=== PATIENT | female | born 1990 | race Caucasian/White ===

== ENCOUNTER 2018-09-20 13:06 | Emergency (ER) | payer MEDICAID ==
[2018-09-20 14:29] LABS: HEMOGLOBIN 12.8 gm/dL (12-16); RED BLOOD COUNT 3.81 Mil/cmm (3.80-5.10); WHITE BLOOD COUNT 5.5 Th/cmm (4.8-10.8)
[2018-09-20 14:30] LABS: % LYMPHOCYTES 27.8 % (20.0-50.0); % MONOCYTES 7.1 % (2.0-10.0); % NEUTROPHILS 63.4 % (40.0-80.0); HEMATOCRIT 36.9 % (41.0-60); MEAN CORPUSCULAR HGB CONC 34.7 pg (28.0-36.0); PLATELET COUNT 150 Th/cmm (150-400); RED CELL DISTRIBUTION WIDTH 11.6 % (11.5-20.0)
[2018-09-20 14:31] LABS: % EOSINOPHILS 1.7 % (0.0-5.0); EOSINOPHILE ABSOLUTE 0.1 Th/cmm (0.1-0.4); LYMPHOCYTE ABSOLUTE 1.5 Th/cmm (1.5-3.0); MONOCYTE ABSOLUTE 0.4 Th/cmm (0.3-1.0); NEUTROPHILE ABSOLUTE 3.5 Th/cmm (1.8-8.0)
[2018-09-20 14:32] LABS: MEAN CELL VOLUME 96.8 fl (81-100)
[2018-09-20 14:39] LABS: MEAN CORPUSCULAR HEMOGLOBIN 33.6 pg (27.0-31.0)
--- NOTE | 2018-09-20 15:35 | ED Physician Chart ---
ED Chief Complaint/HPI - Patient Information Date Seen:: 09/20/18 Time Seen:: 13:30 Chief Complaint:: recent pin point cramping abd with positive preg test llq Allergies:: Allergies Allergy/AdvReac Type Severity Reaction Status Date / Time No Known Allergies Allergy Verified 09/20/18 13:17 Vitals:: Vital Signs - 8 hr 09/20/18 09/20/18 13:18 14:47 Temp 98.6 F 97.2 F HR 65 65 RR 18 17 BP 113/63 118/90 O2 Sat % 98 98 Review:: Nurse's Note Reviewed ED Review of Systems - Review of Systems General/Constitutional: No fever, No diaphoresis Skin: No skin lesions Head: No headache Eyes: No loss of vision ENT: No earache Neck: No neck pain Cardio Vascular: No chest pain Pulmonary: No SOB GI: No nausea, No vomiting G/U: No dysuria Motor Tester: No abnormal vaginal bleed Hematopoietic: No bruising Allergic/Immuno: No urticaria Neurological: No syncope ED Past Medical History - Past Medical History Past Medical History: No significant medical hx Family Medical History - Family Member Father Ethnicity: Non- Living Status: Hx Family Cancer: Yes Hx Family Coronary Artery Disease: Yes Other Medical History: PULMONARY DISEASE ED Physical Exam - Physical Examination General/Constitutional: Awake, Well-developed, well-nourished, Alert, No distress, GCS 15, Non-toxic appearing, Ambulatory Head: Atraumatic Eyes: Lids, conjuctiva normal Skin: Nl inspection ENMT: External ears, nose nl Neck: Nontender Respiratory: Nl effort/Exclusion, Clear to Auscultation Cardio Vascular: RRR GI: No tenderness/rebounding/guarding, No organomegaly, No hernia, Normal BS's, No McBurney tenderness Extremities: No tenderness or effusion Neuro/Psych: Alert/oriented, DTR's symmetric, Normal sensory exam, Normal motor strength Misc: Normal back (pin point location) ED Labs/Radiology/EKG Results - Lab Results Results: Laboratory Tests 09/20/18 09/20/18 09/20/18 13:30 13:55 13:55 WBC 5.5 RBC 3.81 Hgb 12.8 Hct 36.9 L MCV 96.8 MCH 33.6 H MCHC Differential 34.7 RDW 11.6 Plt Count 150 MPV 9.4 Add Manual Diff Not Reportable Neutrophils % 63.4 Lymphocytes % 27.8 Monocytes % 7.1 Eosinophils % 1.7 Basophils % 0.0 Beta HCG, Quant 7013 H* POC Ur Test Positive ED Assessment - Assessment General Assessment: intra uterine pregnacy with pain ED Septic Shock - . Is Septic Shock (SBP<90, OR Lactate>4 mmol\L) present?: No - <6hrs of presentation: Vital Signs: Vital Signs - 8 hr 09/20/18 09/20/18 13:18 14:47 Temp 98.6 F 97.2 F HR 65 65 RR 18 17 BP 113/63 118/90 O2 Sat % 98 98 ED Reassessment (Disposition) - Reassessment Reassessment Condition:: Improved (warned could still have ectopic increase pain or bleed needs to be seen immediately) - Patient Disposition Discharge/Transfer:: Home Condition at Disposition:: Stable, Improved
--- NOTE | 2018-09-21 09:58 | Diagnostic Imaging Report ---
Ultrasound OB, less than 14 weeks HISTORY: female with mild cramping. No spotting. COMPARISON: None Technique: Longitudinal and transverse sonographic sector images of the pelvis were obtained transabdominally and transvaginally. FINDINGS: The uterus measures 8.3 x 4.9 x 6.2 cm. Intrauterine gestational sac is noted with yolk sac visualized. No pole is identified at this time. The gestational sac measures 0.96 cm corresponding gestational age of 5 weeks and 5 days. The right ovary measures 2.8 x 2.4 cm demonstrate follicular cystic changes. The left ovary measures 2.6 x 2.6 cm demonstrating follicular cystic changes. There may be a complex left ovarian cystic lesion. Vascular flow to ovaries is noted. No free fluid identified. IMPRESSION: Intrauterine gestational sac with yolk sac noted. No pole is identified at this time. Differential diagnosis includes a very early . Other etiologies such as missed or ectopic is considered less likely. Clinical correlation and correlation with serial beta hCGs and repeat ultrasound in 5-7 days is recommended for further assessment/monitoring and to ensure viability. Bilateral ovarian follicular cystic changes with possible left complex ovarian cystic lesion. Recommend short-term follow up ultrasound in 4-6 weeks. No free fluid identified.
== END 2018-09-20 14:52 | disposition home or self-care (01) ==
LOC: ER 13:06
DX: O26.891 Other specified pregnancy related conditions, first trimester (principal); R10.32 Left lower quadrant pain; Z3A.01 Less than 8 weeks gestation of pregnancy
CPT/HCPCS: 36415-UA; 76801-TC; 81025-TC; 84702-TC; 85025-TC